=== PATIENT | male | born 2005 ===

== ENCOUNTER 2025-04-01 05:03 | Emergency (ER) | payer SELFPAY ==
[~2025-04-01] VITALS: Ht 182.9 cm; Wt 59.1 kg
[2025-04-01 05:17] VITALS: BP 120/57; PULSE 110; RESP 18; TEMP 98.2; O2SAT 97
== END 2025-04-01 05:56 ==
LOC: EMS 05:03
DX: S00.11XA Contusion of right eyelid and periocular area, initial encounter (principal); Z65.3 Problems related to other legal circumstances; W18.39XA Other fall on same level, initial encounter; Y93.89 Activity, other specified; Y92.89 Other specified places as the place of occurrence of the external cause; Y99.8 Other external cause status
CPT/HCPCS: 99283; Z7502